=== PATIENT | female | born 1980 | race Caucasian/White ===

== ENCOUNTER 2018-08-06 19:56 | Emergency (ER) | payer MEDICAID ==
[2018-08-06 21:25] VITALS: BP 100/49
== END 2018-08-06 21:25 | disposition home or self-care (01) ==
LOC: ED 19:56
DX: S05.02XA Injury of conjunctiva and corneal abrasion without foreign body, left eye, initial encounter (principal); H10.022 Other mucopurulent conjunctivitis, left eye; X58.XXXA Exposure to other specified factors, initial encounter; Y93.89 Activity, other specified; Y92.89 Other specified places as the place of occurrence of the external cause; Y99.8 Other external cause status